=== PATIENT | female | born 1940 | race African-American/Black ===

== ENCOUNTER → 2017-07-28 | Outpatient (CLI) | payer MEDICARE, BC ==
[~2017-07-28] MED LIST: REGADENOSON 0.4 MG/5 ML DISP.SYRIN. IV ONE
--- NOTE | 2017-07-28 11:50 | PCVCIMAG ---
APPROVED REPORT Study performed: 07/28/2017 08:40:00 EXAM: Comprehensive 2D, Doppler, and color-flow Echocardiogram Patient Location: Echo lab Status: routine BSA: 1.76 HR: 71 bpmBP: 106/76 mmHg Rhythm: LBBB Other Information Study Quality: Adequate Indications Abnormal ECG Dyspnea Hypertension/HDD 2D Dimensions LVEF(%): 72.86 (>50%) IVSd: 6.75 (7-11mm)LVOT Diam: 18.15 (18-24mm) LVDd: 35.19 mm PWd: 6.62 (7-11mm)Ascending Ao: 25.85 (22-36mm) LVDs: 20.76 (25-40mm) Left Atrium: 28.25 (27-40mm) Aortic Root: 19.87 mm LV Single Plane 4CH: 56.96 % LV Single Plane 2CH: 55.64 %Robles's LVEF: 56.30 % Biplane EF: 56.3 % Volumes Left Atrial Volume (Systole) Single Plane 4CH: 38.93 mLSingle Plane 2CH: 30.32 mL Biplane LA Volume: 38.00 mLLA ESV Index: 21.00 mL/m2 Aortic Valve AoV Peak César.: 1.23 m/s AO Peak Gr.: 6.03 mmHgLVOT Max P.90 mmHg LVOT Max V: 0.85 m/s LIZZ Vmax: 1.79 cm2 Mitral Valve E/A Ratio: 0.6 MV Decel. Time: 202.60 ms MV E Max César.: 0.64 m/s MV A César.: 1.14 m/s MV PHT: 58.75 ms IVRT: 141.87 ms TDI E/Lateral E': 9.14E/Medial E': 16.00 Medial E' César.: 0.04 m/s Lateral E' César.: 0.07 m/s Pulmonary Valve PV Peak César.: 0.61 m/sPV Peak Gr.: 1.49 mmHg Pulmonary Vein P Vein S: 0.54 m/sP Vein A: 0.32 m/s P Vein D: 0.32 m/sP Vein A Dur.: 100.3 msec P Vein S/D Ratio: 1.69 Tricuspid Valve TR Peak César.: 2.92 m/s TR Peak Gr.: 34.01 mmHg TV Vmax: 0.54 m/sPA Pressure: 41.00 mmHg Left Ventricle The left ventricle is normal size. There is normal LV segmental wall motion. There is normal left ventricular wall thickness. Left ventricular systolic function is normal. The left ventricular ejection fraction is within the normal range. LVEF is 55-60%. Grade I - abnormal relaxation pattern. Right Ventricle The right ventricle is normal size. The right ventricular systolic function is normal. Atria The left atrium size is normal. The right atrium size is normal. Aortic Valve The aortic valve is normal in structure. No aortic regurgitation is present. There is no aortic valvular stenosis. Mitral Valve The mitral valve is normal in structure and function. Minimal mitral valve sclerosis Mild mitral regurgitation. No evidence of mitral valve stenosis. Tricuspid Valve The tricuspid valve is normal in structure. Moderate tricuspid regurgitation with a PA pressure of 41mmHg. Pulmonic Valve The pulmonary valve is normal in structure. There is no pulmonic valvular regurgitation. Great Vessels The aortic root is normal in size. The ascending aorta is normal in size. IVC is normal in size and collapses with >50% inspiration Pericardium There is no pericardial effusion. There is no pleural effusion. <Conclusion> The left ventricle is normal size. Left ventricular systolic function is normal. Grade I - abnormal relaxation pattern. The right ventricle is normal size. The left atrium size is normal. The aortic valve is normal in structure. Mild mitral regurgitation. Moderate tricuspid regurgitation with a PA pressure of 41mmHg.
--- NOTE | 2017-07-28 12:25 | PCVCIMAG ---
APPROVED REPORT Exam: Nuclear Stress Test Indication: Chest Pain, Dyspea, LBBB, Pre OP Patient Location: Out-Patient Stress Nurse: Megan Foreman RN, Melanie Olsen RN PR Tech:Francisco J [id number] Ht: 5 ft 4 in Wt: 153 lbs BSA: 1.75 m2 HR: 68 bpm BP: 162/70 mmHg BMI: 26.2 Rhythm: SR Incomplete, LBBB Medical History Medical History: Age, Hyperlipidemia, HTN, Former Smoker Medications: ASA, Hyzaar, Pravastatin, Timolol Allergies: Caffeine, Iodine Pretest Chest Pain Characteristics: No chest pain Exercise History: Sedentary Stress Test Details Stress Test: Pharmacologic stress testing performed using 0.4 mg of regadenoson per 5 mL given IV over 10 seconds. HR Resting HR: 68 bpmMax Heart Rate (APMHR): 143 bpm Max HR Achieved: 103 bpmTarget HR (85% APMHR): 121 bpm % of APMHR: 72 Recovery HR: 94 bpm BP Resting BP: 162/70 mmHg Max BP: 157/68 mmHg ECG Resting ECG: Sinus Rhythm, LBBB Stress ECG: Sinus Rhythm, LBBB Arrhythmia: None Recovery ECG: Sinus Rhythm, TWave Abnormality Clinical Reason for Termination: Completed protocol Stress Symptoms: Dyspnea Exercise duration: min 55 sec Exercise capacity: 1.0 METs Symptoms resolved during recovery. PR EXAM: Myocardial Perfusion REST/STRESS Imaging Protocol: Rest Tc-99m/Stress Tc-99m 1 day Resting Data Rest SPECT myocardial perfusion imaging was performed in supine position 45 minutes following the intravenous injection of 12 mCi of Tc-99m Sestamibi. Time of rest injection: 829 Date: 07/28/2017 Pharmacologic Stress Pharmacologic stress test was performed by injecting Regadenoson 0.4 mg IV push followed by the intravenous injection of 36 mCi of Tc-99m Sestamibi. Time of stress injection: 949 Date: 07/28/2017 The images were gated to evaluate regional wall motion and calculate left ventricular ejection fraction. Study Quality Study: Good Study Data Post stress, the left ventricular ejection was 84%.. SSS: 4 SRS: 5 SDS: 1 TID = 0.90. Perfusion Normal perfusion on both the stress and rest images. Wall Motion Normal left ventricular wall motion. Nuclear Conclusion ECG Findings: non-diagnostic Clinical Findings: non-diagnostic Nuclear Findings: negative for ischemia This study is of low probability for inducible ischemia or prior infarct. Normal global and segmental LV systolic function.
== END | disposition home or self-care (01) ==
LOC: PCVCIMAG 08:22
PROVIDERS: ATTEND Internal Medicine Cardiovascular Disease
DX: Z01.810 Encounter for preprocedural cardiovascular examination (principal); I44.7 Left bundle-branch block, unspecified; I08.1 Rheumatic disorders of both mitral and tricuspid valves; I10 Essential (primary) hypertension; E78.00 Pure hypercholesterolemia, unspecified; R94.31 Abnormal electrocardiogram [ECG] [EKG]; K52.9 Noninfective gastroenteritis and colitis, unspecified; Z87.891 Personal history of nicotine dependence; Z91.041 Radiographic dye allergy status; Z91.018 Allergy to other foods; Z79.82 Long term (current) use of aspirin; Z79.899 Other long term (current) drug therapy
CPT/HCPCS: 78452; 93017; 93306; A9500; G0463; J2785

== ENCOUNTER → 2018-03-30 | Outpatient (CLI) | payer MEDICARE, BC | END | disposition home or self-care (01) | LOC: PCVCCLINIC 11:27 | DX: I10 Essential (primary) hypertension (principal); R06.09 Other forms of dyspnea; E78.00 Pure hypercholesterolemia, unspecified; Z79.82 Long term (current) use of aspirin; Z88.8 Allergy status to other drugs, medicaments and biological substances | CPT/HCPCS: 93005; G0463 ==

== ENCOUNTER → 2019-04-01 | Outpatient (CLI) | payer MEDICARE, BC | END | disposition home or self-care (01) | LOC: PCVCCLINIC 12:00 | PROVIDERS: ATTEND Internal Medicine Cardiovascular Disease | DX: R06.02 Shortness of breath (principal); I10 Essential (primary) hypertension; E78.00 Pure hypercholesterolemia, unspecified; I44.7 Left bundle-branch block, unspecified; R60.9 Edema, unspecified; Z91.018 Allergy to other foods; Z91.041 Radiographic dye allergy status | CPT/HCPCS: 93005; G0463 ==